=== PATIENT | male | born 1985 | race Caucasian/White ===

== ENCOUNTER 2022-01-20 18:39 | Emergency (ER) | payer SELFPAY ==
[~2022-01-20] VITALS: Ht 180.3 cm; Wt 88.6 kg
[2022-01-20 19:05] VITALS: BP 123/90
[2022-01-20] MEDS ORDERED: SULF1TAB49 PO (21:45)
[2022-01-20] MEDS ORDERED: sulfamethoxazole/trimethoprim DS (800/160mg) tablet PO ONE (21:45)
== END 2022-01-20 22:12 | disposition home or self-care (01) ==
LOC: ER 18:40
DX: S80.812A Abrasion, left lower leg, initial encounter (principal); X58.XXXA Exposure to other specified factors, initial encounter; Y93.66 Activity, soccer; Y92.89 Other specified places as the place of occurrence of the external cause; Y99.8 Other external cause status
CPT/HCPCS: 99284